=== PATIENT | male | born 1970 | race Two or more races ===

== ENCOUNTER 2021-02-17 20:04 | Emergency (ER) | payer SELFPAY ==
[~2021-02-17] VITALS: Ht 175.3 cm; Wt 72.7 kg
[2021-02-17] MEDS ORDERED: CLINDAMYCIN HCL 150 MG CAPSULE. PO ONE (20:30)
[2021-02-17] MEDS ORDERED: NEOMY/BACITR/POLYMYXIN OINT PACKET. TP ONE (20:30)
[2021-02-17] MEDS ORDERED: LIDOCAINE 2%/EPI 1:100,000 20 ML VIAL. INJ ONE (20:30)
[2021-02-17] MEDS ORDERED: HYDROcodone/APAP 5/325MG 1 TAB TABLET PO ONE (20:45)
[2021-02-17] MEDS ORDERED: HYDR-2761 PO (21:54)
[2021-02-17] MEDS ORDERED: MUPI22OI2 TP (21:54)
[2021-02-17] MEDS ORDERED: CLIN-94 PO (21:54)
--- NOTE | 2021-02-17 21:55 | PHYS DOC ---
Past Medical History Past Surgical History: No Surgical History Smoking Status: Never Smoker Alcohol Use: None General Adult EDM: Chief Complaint: SKIN PROBLEM HPI: HPI: Patient is a 50 year old [f__sex] who presents with [] Review of Systems: Review of Systems: Constitutional: Denies fever or chills. [] Eyes: Denies change in visual acuity. [] HENT: Denies nasal congestion or sore throat. [] Respiratory: Denies cough or shortness of breath. [] Cardiovascular: Denies chest pain or edema. [] GI: Denies abdominal pain, nausea, vomiting, bloody stools or diarrhea. [] : Denies dysuria. [] Musculoskeletal: Denies back pain or joint pain. [] Integument: Denies rash. [] Neurologic: Denies headache, focal weakness or sensory changes. [] Endocrine: Denies polyuria or polydipsia. [] Lymphatic: Denies swollen glands. [] Psychiatric: Denies depression or anxiety. [] Heart Score: Risk Factors: Risk Factors: DM, Current or recent (<one month) smoker, HTN, HLP, family history of CAD, obesity. Risk Scores: Score 0 - 3: 2.5% MACE over next 6 weeks - Discharge Home Score 4 - 6: 20.3% MACE over next 6 weeks - Admit for Clinical Observation Score 7 - 10: 72.7% MACE over next 6 weeks - Early Invasive Strategies Current Medications: Current Medications Medications (Trade) Dose Ordered Sig/Gera Start Time Stop Time Status Last Admin Dose Admin Acetaminophen/ Hydrocodone Bitart (Lortab 5/325) 1 tab 1X ONCE 02/17/21 20:45 02/17/21 20:46 DC 02/17/21 20:56 1 TAB Clindamycin HCl (Cleocin) 300 mg 1X ONCE 02/17/21 20:30 02/17/21 20:43 DC 02/17/21 20:57 300 MG Lidocaine/ Epinephrine (LIDOCAINE 2%-EPI 1:100,000 multi-dose) 20 ml 1X ONCE 02/17/21 20:30 02/17/21 20:43 DC 02/17/21 20:57 20 ML Neomycin/ Polymyxin/ Bacitracin (Triple Antibiotic Ointment) 2 pkt 1X ONCE 02/17/21 20:30 02/17/21 20:43 DC 02/17/21 20:58 2 PKT Allergies: Allergies: Allergies Coded Allergies Type Severity Reaction Last Updated Verified No Known Drug Allergies 02/17/21 No Physical Exam: PE: Constitutional: Well developed, well nourished, no acute distress, non-toxic appearance. [] HENT: Normocephalic, atraumatic, bilateral external ears normal, oropharynx moist, no oral exudates, nose normal. [] Eyes: PERRLA, EOMI, conjunctiva normal, no discharge. [] Neck: Normal range of motion, no tenderness, supple, no stridor. [] Cardiovascular:Heart rate regular rhythm, no murmur [] Lungs & Thorax: Bilateral breath sounds clear to auscultation [] Abdomen: Bowel sounds normal, soft, no tenderness, no masses, no pulsatile masses. [] Skin: Warm, dry, no erythema, no rash. [] Back: No tenderness, no CVA tenderness. [] Extremities: No tenderness, no cyanosis, no clubbing, ROM intact, no edema. [] Neurologic: Alert and oriented X 3, normal motor function, normal sensory function, no focal deficits noted. [] Psychologic: Affect normal, judgement normal, mood normal. [] Current Patient Data: Vital Signs: Vital Signs Date Time Temp Pulse Resp B/P (MAP) Pulse Ox O2 Delivery O2 Flow Rate FiO2 02/17/21 20:56 18 97 02/17/21 20:20 99.4 99 149/83 (105) Room Air 99.4 EKG: EKG: [] Radiology/Procedures: Radiology/Procedures: [] Course & Med Decision Making: Course & Med Decision Making Pertinent Labs and Imaging studies reviewed. (See chart for details) [] Dragon Disclaimer: Dragon Disclaimer: This electronic medical record was generated, in whole or in part, using a voice recognition dictation system. Departure Departure Impression: Primary Impression: Abscess of right axilla Additional Impressions: Cutaneous abscess of buttock Cellulitis and abscess of unspecified site Disposition: 01 HOME / SELF CARE / HOMELESS Condition: STABLE Patient Instructions: Abscess, Care After, Abscess, [id number], Hidradenitis Suppurativa, Sweat Gland Abscess Additional Instructions: WAIT 24 HOURS and then remove packing. Do not soak your wound. You may shower. Clean wound daily with soap and water. Change dressing 2 times daily. Use prescribed antibiotic ointment with each dressing change. May use over the counter Ibuprofen as needed for pain in addition to prescribed pain medications. Please take oral antibiotics to completion. Scripts Hydrocodone Bit/Acetaminophen (HYDROCODONE-APAP 5-325 ) 1 Tab Tablet 0.5-1 TAB PO PRN Q6HRS PRN for PAIN, #14 TAB 0 Refills Prov: PEDRO KILPATRICK DO 02/17/21 Mupirocin (MUPIROCIN OINTMENT) 22 Gm Oint...g. 1 YANG TP TID for WOUND CARE for 10 Days, #22 GM Prov: PEDRO KILPATRICK DO 02/17/21 Clindamycin Hcl (CLINDAMYCIN HCL) 300 Mg Capsule 1 CAP PO TID for 10 Days, #30 CAP Prov: PEDRO KILPATRICK DO 02/17/21 PEDRO KILPATRICK DO Feb 17, 2021 21:55
--- NOTE | 2021-02-17 21:56 | PHYS DOC ---
Past Medical History Past Surgical History: No Surgical History Smoking Status: Never Smoker Alcohol Use: None General Adult EDM: Chief Complaint: SKIN PROBLEM HPI: HPI: Patient is a 50-year-old male presenting for multiple abscesses in his right armpit and one on his left buttock. He reports that he first noticed the ones in his right armpit about a week ago, but they were much smaller at that time. He reports that about 3 to 4 days ago he noticed some drainage from the ones in his armpit and also noticed a bump on his left buttock. Since then he has noticed some purulent drainage from both along with increased redness and warmth around his armpit. He denies history of diabetes, previous skin infections, and IV drug use. He denies any bug bites or scratches to either of the areas. He denies recent fever or chills, but states that he has felt a bit worse today. He reports his pain is a 5 out of 10 currently, and he has not taken anything for this. He denies shaving his armpits, but states that he has recently used a new deodorant. Review of Systems: Review of Systems: Constitutional: Denies fever or chills HENT: Denies nasal congestion or sore throat Respiratory: Denies cough or shortness of breath Cardiovascular: Denies chest pain or palpitations GI: Denies abdominal pain, nausea, or vomiting : Denies dysuria or hematuria Musculoskeletal: Denies back pain or joint pain Integument: Denies rash; reports skin lesions Neurologic: Denies headache, focal weakness or sensory changes Complete systems were reviewed and found to be within normal limits, except as documented in this note. Heart Score: C/O Chest Pain: No Current Medications: Current Medications Medications (Trade) Dose Ordered Sig/Gera Start Time Stop Time Status Last Admin Dose Admin Acetaminophen/ Hydrocodone Bitart (Lortab 5/325) 1 tab 1X ONCE 02/17/21 20:45 02/17/21 20:46 DC 02/17/21 20:56 1 TAB Clindamycin HCl (Cleocin) 300 mg 1X ONCE 02/17/21 20:30 02/17/21 20:43 DC 02/17/21 20:57 300 MG Lidocaine/ Epinephrine (LIDOCAINE 2%-EPI 1:100,000 multi-dose) 20 ml 1X ONCE 02/17/21 20:30 02/17/21 20:43 DC 02/17/21 20:57 20 ML Neomycin/ Polymyxin/ Bacitracin (Triple Antibiotic Ointment) 2 pkt 1X ONCE 02/17/21 20:30 02/17/21 20:43 DC 02/17/21 20:58 2 PKT Allergies: Allergies: Allergies Coded Allergies Type Severity Reaction Last Updated Verified No Known Drug Allergies 02/17/21 No Physical Exam: PE: Constitutional: Well developed, well nourished, no acute distress, non-toxic appearance HENT: Normocephalic, atraumatic Eyes: Conjunctiva normal, no discharge Neck: Normal range of motion, supple Lungs & Thorax: No respiratory distress, equal chest rise and fall Abdomen: Soft, no tenderness Skin: Warm, dry, 1 small abscess noted to center of left buttock with fluctuance and surrounding erythema. 1 large and 3 smaller abscesses noted to right armpit with moderate fluctuance and surrounding erythema that extends distally down his arm and slighly medially across his chest Back: No tenderness, no CVA tenderness Extremities: ROM intact, no edema Neurologic: Alert and oriented X 3, no focal deficits noted Psychologic: Affect normal, judgment normal Current Patient Data: Vital Signs: Vital Signs Date Time Temp Pulse Resp B/P (MAP) Pulse Ox O2 Delivery O2 Flow Rate FiO2 02/17/21 20:56 18 97 02/17/21 20:20 99.4 99 149/83 (105) Room Air 99.4 Course & Med Decision Making: Course & Med Decision Making Pertinent Labs and Imaging studies reviewed. (See chart for details) Patient is a 50-year-old male presenting with abscess to the left buttock and 4 abscesses to the right armpit. Pain control provided with a hydrocodone tablet here in the emergency department, 1st dose of clindamycin given here as well. Tetanus was updated. Incision & drainage was performed to all sites with packing of 3 of the 4 in the right armpit with half-inch plain sterile gauze strips. Patient was informed that he should take this packing out in 24 hours and should not get them wet until that time. Patient tolerated the procedure well. Will give prescription for pain control and clindamycin as well. Patient stable for discharge with outpatient follow-up with PCP. Discussed findings and plan with patient, who acknowledges understanding and agreement. Pedro Luis Disclaimer: Pedro Luis Disclaimer: This electronic medical record was generated, in whole or in part, using a voice recognition dictation system. Incision and Drainage Incision and Drainage #1: Site: Left buttock Blade Size: 11 Incision and Drainage #2: Site: Right armpit Blade Size: 11 Progress Verbal consent obtained. Time out performed. Hand hygiene utilized. Wounds cleaned with ChloraPrep. Left buttock, 1 abscess Anesthesia obtained via a 25-gauge hypodermic needle with 6 mL's of lidocaine 2% with epinephrine. Incision made with 11 blade, small amount of purulent drainage. Copious irrigation performed. Patient tolerated procedure well and without difficulty. Empiric antibiotic ointment applied prior to sterile dressing. Right armpit, 4 abscesses Anesthesia obtained via a 25-gauge hypodermic needle with 12 mL's of lidocaine 2% with epinephrine. Incision made with 11 blade, large amount of purulent drainage. Copious irrigation performed. 3 of the 4 were packed with 1/2 plain sterile gauze strip, smallest of the 4 left open. Patient tolerated procedure well and without difficulty. Empiric antibiotic ointment applied prior to sterile dressing. Departure Departure Scripts Hydrocodone Bit/Acetaminophen (HYDROCODONE-APAP 5-325 ) 1 Tab Tablet 0.5-1 TAB PO PRN Q6HRS PRN for PAIN, #14 TAB 0 Refills Prov: PEDRO KILPATRICK DO 02/17/21 Mupirocin (MUPIROCIN OINTMENT) 22 Gm Oint...g. 1 YANG TP TID for WOUND CARE for 10 Days, #22 GM Prov: PEDRO KILPATRICK DO 02/17/21 Clindamycin Hcl (CLINDAMYCIN HCL) 300 Mg Capsule 1 CAP PO TID for 10 Days, #30 CAP Prov: PEDRO KILPATRICK DO 02/17/21 PEDRO KILPATRICK DO Feb 17, 2021 21:56
[2021-02-17 22:30] VITALS: BP 112/57
== END 2021-02-17 22:30 | disposition home or self-care (01) ==
LOC: ER 20:04
DX: L02.31 Cutaneous abscess of buttock (principal); L02.411 Cutaneous abscess of right axilla
CPT/HCPCS: 10061; 99284; J3490